=== PATIENT | male | born 1950 | race Caucasian/White ===

== ENCOUNTER 2025-03-13 14:35 | Inpatient (IN) | payer MEDICARE, SELFPAY ==
[2025-03-13] VITALS (9 sets, daily range): BP systolic 120–162; BP diastolic 60–78; PULSE 48–56; RESP 16–20; TEMP 36.4–36.6; O2SAT 99–100; BMI 22.9; BMI 22.6
--- NOTE | 2025-03-13 14:53 | CT_ITS ---
PROCEDURE: SPINE CERVICAL WITHOUT CONTRAS 03/13/2025 REASON FOR EXAM: TRAUMA TECHNIQUE: Cervical spine CT without contrast. Coronal and Sagittal reconstruction series were provided. One or more dose reduction techniques were used (e.g., Automated exposure control, adjustment of the mA and/or kV according to patient size, use of iterative reconstruction technique. RADIATION DOSE SUMMARY: CTDlvol: 26 mGy DLP: 600 mGycm COMPARISON: None. FINDINGS: Alignment: No traumatic listhesis. Grade 1 anterolisthesis of C4 onto C5. Vertebrae: No acute osseous fracture. Mild multilevel vertebral body height loss. Multilevel degenerative disc disease, greatest and of severe degree at C6-C7. Posterior disc osteophyte complexes and uncovertebral facet hypertrophy results in mild multilevel central and moderate multilevel neural foraminal stenosis. Soft Tissues: No prevertebral or subcutaneous hematoma. Calcific plaque of the bilateral cervical carotid arteries. See separately dictated same day CT chest for discussion of thoracic findings. CT/Spine Cervical without Contras IMPRESSION: NO ACUTE CERVICAL FRACTURE. DEGENERATIVE CHANGES. Reading Location: [id number]
--- NOTE | 2025-03-13 14:53 | EKG12_ITS ---
Test Reason : FALL Blood Pressure : */* mmHG Vent. Rate : 53 BPM Atrial Rate : 53 BPM P-R Int : 156 ms QRS Dur : 84 ms QT Int : 458 ms P-R-T Axes : 74 67 83 degrees QTcB Int : 429 ms Sinus bradycardia with sinus arrhythmia Otherwise normal ECG Confirmed by Silviano Bowling ([id number]), assignment editor NIURKA MONTALVO ([id number]) on 03/15/2025 9:20:17 AM Referred By: Ronald Piper Confirmed By: Silviano Bowling
--- NOTE | 2025-03-13 14:53 | CT_ITS ---
PROCEDURE: CT CHEST, ABD, PEL W/CONTRAST 03/13/2025 REASON FOR EXAM: FALL, ABD PAIN TECHNIQUE: Chest, abdomen and pelvis CT with intravenous contrast. Coronal and Sagittal reconstruction series were provided. One or more dose reduction techniques were used (e.g., Automated exposure control, adjustment of the mA and/or kV according to patient size, use of iterative reconstruction technique. PATIENT PREPARATION: Per protocol ORAL CONTRAST TYPE: None. CONTRAST: Isovue 370 VOLUME: 100m RADIATION DOSE SUMMARY: CTDlvol: 50 mGy DLP: 1700 mGycm COMPARISON: None. FINDINGS: CT CHEST: Hardware: None. Lymph nodes: No axillary, mediastinal or hilar lymphadenopathy. Heart and Vasculature: The heart is normal in size without pericardial effusion. Severe coronary artery calcifications/prior stenting. Moderate calcific plaque of the thoracic aorta. The great vessels are normal in caliber. Lungs and Airways: Visualization is limited by motion artifact. Emphysema with bibasilar atelectasis/scarring. Left upper lobe pulmonary nodule, measuring approximately 1.5 x 1.0 cm (series 8, image 39). Thickening of the right apical, not well visualized due to motion artifact. No pneumothorax or pleural effusion. Bones: Thoracic spondylosis. CT ABDOMEN/PELVIS: Liver: The liver is normal in size without focal hepatic mass. The major portal veins are patent. No biliary ductal dilation. Gallbladder: No radiopaque stones within the gallbladder. Spleen: Unremarkable. Pancreas: Unremarkable. Adrenals: Mild hyperplasia of the left adrenal gland without focal lesion. Unremarkable right adrenal gland. Kidneys: Bilateral renal cysts and additional hypodensities. Left renal calcifications, likely vascular. No hydronephrosis. Bladder: Minimally distended. Reproductive Organs: Dystrophic calcifications within the prostate. Bowel: The bowel loops are normal in caliber. No ascites or pneumoperitoneum. Normal appendix. Lymph nodes: No suspicious lymphadenopathy. Vasculature: Severe mixed plaque of the aortoiliac vessels. Bones: Lumbar spondylosis with grade 1 anterolisthesis of L4 onto L5, and L5 onto S1. CT/CT Chest, Abd, Pel w/Contrast IMPRESSION: CT chest: 1. Motion limited exam. No acute thoracic finding. 2. Left upper lobe pulmonary nodule, poorly evaluated due to motion artifact. Follow-up CT chest in 3 months is recommended to evaluate for stability/resolution. 3. Emphysema. CT abdomen/pelvis: No acute abdominopelvic finding. Reading Location: [id number]
--- NOTE | 2025-03-13 14:53 | CT_ITS ---
EXAM: BRAIN/HEAD WITHOUT CONTRAST CLINICAL HISTORY: 75 y/o M with TRAUMA. COMPARISON: None. TECHNIQUE: Routine CT imaging of the head without IV contrast. Additional multiplanar reformats were obtained. Dose reduction techniques were used including intermediate exposure control (AEC),iterative reconstruction technique, and/or mA and/or KV dose adjustments based on patient's size. FINDINGS: The ventricles, sulci and cisterns are mildly prominent, suggestive of brain parenchymal volume loss. There is no evidence of intracranial hemorrhage. There is no midline shift, mass effect, or extra-axial collection. Moderate patchy supratentorial white matter hypodensities. Small, chronic appearing infarct within the right frontoparietal watershed area. Small lacunar type infarct within the left basal ganglia. The hand-white matter interfaces are otherwise maintained. Prior ocular lens replacements. The visualized paranasal sinuses and mastoids are unremarkable. No acute calvarial fracture or scalp hematoma. CT/Brain/Head without Contrast IMPRESSION: 1. No acute intracranial finding. 2. Findings of chronic microvascular ischemic changes and age-related changes. Reading Location: [id number]
[2025-03-13] MEDS: 0.9% Normal Saline (1000mL) 1,000 ML 999 ML IV (14:57)
[2025-03-13 15:06] LABS: Absolute Lymphocyte Count 1.43 X10^3/uL (0.83-4.51); Absolute Neutrophil Count 6.5 X10^3/uL (2.0-7.7); Basophil# 0.06 X10^3/uL; Basophil% 0.7 % (0-1); Eosinophil# 0.02 X10^3/uL; Eosinophils% 0.2 % (0-5); Hematocrit 38.8 % (40-54); Hemoglobin 13.4 g/dL (13.0-16.5); Lymphocyte # 1.43 X10^3/ul (0.83-4.51); Lymphocyte % 16.5 % (19-41); Mean Corp Hgb Conc 34.5 g/dL (32-36); Mean Corpuscular Hgb 31.2 pg (27.0-32.0); Mean Corpuscular Volume 90.2 fL (80-94); Mean Platelet Vol. 11.4 fl (6.2-12.0); Monocyte# 0.58 X10^3/uL; Monocyte% 6.7 % (0-10); NRBC Flagged by Analyzer 0 % (0-5); Neutrophil # 6.54 X10^3/uL (2.7-7.7); Neutrophil % 75.6 % (47-70); Platelet Count 187 K/mm3 (150-450); RBC Distribution Width CV 13.7 % (11.6-14.6); RBC Distribution Width SD 45.6 fl (35.1-43.9); White Blood Count 8.7 K/mm3 (4.4-11.0)
[2025-03-13 15:17] LABS: International Normalized Ratio 1.1; Prothrombin Time (Protime)PT. 14.1 SECONDS (11.7-14.9)
[2025-03-13 15:18] LABS: Partial Thromboplast Time 26.1 Seconds (24.1-36.2)
--- NOTE | 2025-03-13 15:25 | EX.ED.DYSGE1 ---
HPI History of Present Illness Chief Complaint: Fall Narrative Narrative: Patient is a 75-year-old male with a past medical history of CAD, hypercholesteremia, hypertension who presents to the emergency department the chief complaint of multiple falls. Patient apparently had a positive loss consciousness and he after he woke up was able to crawl and call EMS. According to EMS they have been called out to his place multiple times and states that they have taken him to other facilities to be evaluated as well. Patient denies any blood thinning medications. Patient states he does feel lightheaded and overall not well. He states he does feel short of breath. Patient states that he does smoke. [facility] Medical History (Updated 03/13/25 @ 18:[address] Ronald Piper, DO) Depression Restless leg syndrome Essential hypertension Memory loss Myocardial infarction Home Medications ?Medication ?Instructions ?Recorded ?Last Taken ?Type atorvastatin 40 mg tablet (Lipitor) 40 mg PO DAILY 03/13/25 Unknown History chlorthalidone 25 mg tablet 25 mg PO DAILY 03/13/25 Unknown History clopidogrel 75 mg tablet 75 mg PO DAILY 03/13/25 Unknown History fluoxetine 10 mg capsule 10 mg PO DAILY 03/13/25 Unknown History lisinopril 20 mg tablet 20 mg PO DAILY 03/13/25 Unknown History ropinirole 0.25 mg tablet 0.25 mg PO QHS 03/13/25 Unknown History Allergy/AdvReac Type Severity Reaction Status Date / Time No Known Allergies Allergy Verified 03/13/25 14:39 Surgical History (Updated 03/13/25 @ 16:26 by Cristina Alonzo) H/O heart artery stent Social History Smoking Status: Current every day smoker tobacco type: cigarettes ROS ROS ED ROS Narrative Constitutional: Denies fevers, chills, headaches Eyes: Denies change in vision double vision blurry vision Cardiovascular: Denies chest pain or palpitations Respiratory: Complains of cough and shortness of breath as noted above Abdomen: Denies abdominal pain nausea vomit diarrhea : Denies painful urination, hematuria Neurological: Complains of multiple falls noted above denies numbness or tingling Musculoskeletal: Denies back pain Skin: Denies any rashes or lesions EXAM Physical Exam Narrative Exam Narrative: General: Patient is lying in bed rest comfortably not appear to be acute distress Head: Atraumatic, normocephalic Eyes: PERRL bilaterally, EOMI bilaterally, no conjunctival injection noted Neck: Soft, supple, trachea midline Cardiovascular: Patient bradycardic with a regular rhythm Respiratory: Diminished breath sounds bilaterally no wheezing noted Abdomen: Soft, nondistended, diffuse tenderness to palpation no rebound or guarding on exam Extremities: Radial pulses +2/4 in the bilateral extremities, +4/5 strength noted in the bilateral upper and lower extremities Neurological: Patient following commands knew that he was at the hospital he knew that it was spring was confused on the year Skin: Warm, dry, intact no rashes or lesions noted Const Vital Signs: 03/13/25 14:35 03/13/25 14:36 03/13/25 14:40 Temperature 97.6 F L Temperature Source Oral Pulse Rate 56 L 55 L Respiratory Rate 17 17 Respiratory Effort Normal Short of Breath Respiratory Depth Normal Respiratory Pattern Normal Blood Pressure 124/64 H 124/64 H Blood Pressure Mean 84 84 Pulse Ox 99 100 Oxygen Delivery Method Room Air Room Air Room Air 03/13/25 15:39 03/13/25 16:52 03/13/25 18:00 Temperature 97.6 F L Temperature Source Oral Pulse Rate 56 L 55 L 49 L Respiratory Rate 20 H 20 H 17 Respiratory Effort Respiratory Depth Respiratory Pattern Blood Pressure 136/60 H 139/77 H 120/78 Blood Pressure Mean 85 97 92 Pulse Ox 100 100 100 Oxygen Delivery Method Room Air Room Air Room Air MDM MDM MDM Narrative Medical decision making narrative: Patient is a 75-year-old male who presents to the emergency department chief complaint of multiple falls with positive loss conscious. On the differential diagnose includes but not limited to intracranial hemorrhage, cervical spine fracture, electrolyte abnormality, pneumonia, pneumothorax. Once workup is obtained reviewed he will be reevaluated. Patient CBC reviewed and showed no evidence leukocytosis white blood count normal at 8.7, he was 13.4, platelet count 187. Patient's INR normal at 1.1, PT of 14.1. Patient's arterial blood gas showed a pH 7.53 with a pCO2 of 20.5. Patient noted be alkalotic. Patient sodium normal 137, potassium of 4.3,, dioxide low at 18.5, anion gap of 20, creatinine was elevated at 3.98. Patient's AST and ALT were 36 and 13 respectively, total CK was noted to be 225. Patient's troponin was elevated 56 with a delta troponin of 46 this is likely secondary to his DREW. Patient's EKG showed sinus bradycardia. Patient's proBNP normal at 140, TSH normal at 3.87, free T4 and T3 were 1.80 and 2.2 respectively. Patient urinalysis reviewed and showed 100 leukocyte esterase 5-10 white cells with 3+ bacteria he was given a gram Rocephin and this will be sent for urine culture. Patient's drug screen negative. Patient's CT head and brain without contrast was reviewed which showed no acute findings he has findings of chronic microvascular ischemic changes and age-related changes. Patient CT cervical spine showed no acute fracture or listhesis. Patient CT chest abdomen pelvis reviewed and showed motion limited no acute thoracic findings left upper lobe pulmonary nodule which they are recommending follow-up in 3 months secondary to motion artifact emphysema noted. No acute findings in the abdomen or pelvis. At this point time will discuss case with hospitalist for admission Spoke with hospitalist Dr. Marino who accepts patient for admission. Patient notified as well as for member they are agreeable this plan. Did discuss case with on-call [employer] executive director Dr. Ann who reviewed the EKG and agrees that this is sinus bradycardia. Lab Data Labs: Laboratory Results - last 24 hr 03/13/25 03/13/25 03/13/25 14:47 15:55 16:00 WBC 8.7 RBC 4.30 L Hgb 13.4 Hct 38.8 L MCV 90.2 MCH 31.2 MCHC 34.5 RDW Std Deviation 45.6 H RDW Coeff of Cheryl 13.7 Plt Count 187 MPV 11.4 Immature Gran % (Auto) 0.300 Neut % (Auto) 75.6 H Lymph % (Auto) 16.5 L Barron % (Auto) 6.7 Eos % (Auto) 0.2 Baso % (Auto) 0.7 Absolute Neuts (auto) 6.5 Absolute Lymphs (auto) 1.43 Nucleated RBC % 0 PT 14.1 INR 1.1 APTT 26.1 Sodium 137 Potassium 4.3 Chloride 99 Carbon Dioxide 18.5 L Anion Gap 20 H BUN 73 H Creatinine 3.98 H Estim Creat Clear Calc 16.01 L Est GFR (MDRD) Non-Af 15 L BUN/Creatinine Ratio 18.2 Glucose 91 Calcium 10.0 Total Bilirubin 0.99 Direct Bilirubin 0.46 H AST 36 ALT 13 Alkaline Phosphatase 105 Total Creatine Kinase 225 H Troponin T High Sens 56 H* Troponin T Hi Sens 2 Hr NT pro BNP II 140 Total Protein 8.1 Albumin 4.5 Globulin 3.7 TSH 3.870 Free T4 1.80 H Free T3 pg/dL 2.2 Urine Color Yellow Urine Clarity Sl. Cloudy Urine pH 6.0 Ur Specific Colman 1.015 Urine Protein 30 H Urine Glucose (UA) Normal Urine Ketones 15 H Urine Occult Blood Negative Urine Nitrite Negative Urine Bilirubin 1 H Urine Urobilinogen Normal Ur Leukocyte Esterase 100 H Urine RBC 0 SEEN Urine WBC 5-10 SEEN Ur Squamous Epith Cells 0-5 SEEN Urine Bacteria 3+ Hyaline Casts 5-10 SEEN Urine Mucus 0 SEEN Urine Opiates Screen NEGATIVE U Buprenorphine Qual NEGATIVE Ur Oxycodone Screen NEGATIVE Urine Methadone Screen NEGATIVE Urine Fentanyl Screen NEGATIVE Ur Barbiturates Screen NEGATIVE Ur Phencyclidine Scrn NEGATIVE Ur Amphetamines Screen NEGATIVE U Benzodiazepines Scrn NEGATIVE Urine Cocaine Screen NEGATIVE U Cannabinoids Screen NEGATIVE 03/13/25 16:57 WBC RBC Hgb Hct MCV MCH MCHC RDW Std Deviation RDW Coeff of Cheryl Plt Count MPV Immature Gran % (Auto) Neut % (Auto) Lymph % (Auto) Barron % (Auto) Eos % (Auto) Baso % (Auto) Absolute Neuts (auto) Absolute Lymphs (auto) Nucleated RBC % PT INR APTT Sodium Potassium Chloride Carbon Dioxide Anion Gap BUN Creatinine Estim Creat Clear Calc Est GFR (MDRD) Non-Af BUN/Creatinine Ratio Glucose Calcium Total Bilirubin Direct Bilirubin AST ALT Alkaline Phosphatase Total Creatine Kinase Troponin T High Sens Troponin T Hi Sens 2 Hr 46 H NT pro BNP II Total Protein Albumin Globulin TSH Free T4 Free T3 pg/dL Urine Color Urine Clarity Urine pH Ur Specific Colman Urine Protein Urine Glucose (UA) Urine Ketones Urine Occult Blood Urine Nitrite Urine Bilirubin Urine Urobilinogen Ur Leukocyte Esterase Urine RBC Urine WBC Ur Squamous Epith Cells Urine Bacteria Hyaline Casts Urine Mucus Urine Opiates Screen U Buprenorphine Qual Ur Oxycodone Screen Urine Methadone Screen Urine Fentanyl Screen Ur Barbiturates Screen Ur Phencyclidine Scrn Ur Amphetamines Screen U Benzodiazepines Scrn Urine Cocaine Screen U Cannabinoids Screen ABG Data ABG results: ABG 03/13/25 15:47 Specimen Type ART Sample Site L Radial pH 7.53 H Bicarbonate Actual 17.1 L Total CO2 18 Base Excess -6 L O2 Saturation 99 O2 % 21.0 ABG pCO2 20.5 L ABG pO2 111 H Mike Test Positive O2 Delivery Device Room Air Vent Mode Not entered Radiography Diagnostic Testing: Clinical Impression(s) from Imaging Studies Brain CT 03/13/25 14:53 IMPRESSION: 1. No acute intracranial finding. 2. Findings of chronic microvascular ischemic changes and age-related changes. Reading Location: [facility] Cervical Spine CT 03/13/25 14:53 IMPRESSION: NO ACUTE CERVICAL FRACTURE. DEGENERATIVE CHANGES. Reading Location: [facility] Chest/Abdomen/Pelvis CT 03/13/25 14:53 IMPRESSION: CT chest: 1. Motion limited exam. No acute thoracic finding. 2. Left upper lobe pulmonary nodule, poorly evaluated due to motion artifact. Follow-up CT chest in 3 months is recommended to evaluate for stability/resolution. 3. Emphysema. CT abdomen/pelvis: No acute abdominopelvic finding. Reading Location: [facility] Discharge Plan Triage Chief Complaint: Fall ED Provider: Ronald Piper Dx/Rx/DC Orders Clinical Impression: Bradycardia, sinus, Generalized weakness, Elevated creatine kinase, Myocardial infarction type 2 Prescriptions: No Action clopidogrel 75 mg tablet 75 mg PO DAILY ropinirole 0.25 mg tablet 0.25 mg PO QHS fluoxetine 10 mg capsule 10 mg PO DAILY atorvastatin [Lipitor] 40 mg tablet 40 mg PO DAILY lisinopril 20 mg tablet 20 mg PO DAILY chlorthalidone 25 mg tablet 25 mg PO DAILY Primary Care Provider: Nikhil Spear Referrals: Nikhil Spear MD [Primary Care Provider] - Print Language: Estonian Disposition Disposition: [facility]
[2025-03-13 15:43] LABS: AST(SGOT) 36 U/L (<=37); Alanine Aminotransfer ALT/SGPT 13 U/L (<=46); Albumin, Serum 4.5 g/dL (3.4-4.8); Alkaline Phosphatase 105 U/L (40-129); Anion Gap 20 (5-15); BUN 73 mg/dL (4-19); BUN/Creat Ratio 18.2 RATIO (10-20); Bilirubin, Direct 0.46 mg/dL (0.00-0.30); Carbon Dioxide 18.5 mmol/L (21.0-32.0); Chloride 99 mmol/L (98-108); Creatinine, Serum 3.98 mg/dL (0.70-1.20); EST Glomerular Filtration Rate 15 (>60); Estimated Creatinine Clearance 16.01 ml/min (50-250); Globulin 3.7 g/dL (2.2-4.2); Glucose 91 mg/dL (70-99); Potassium 4.3 mmol/L (3.3-5.1); Protein, Total 8.1 g/dL (5.9-8.4); Sodium Level 137 mmol/L (133-145); Total Bilirubin 0.99 mg/dL (0.00-1.30)
[2025-03-13 15:51] LABS: Allen Test Positive; Base Excess -6 mmol/L (-2 to +2); Bicarbonate 17.1 mmol/L (22-26); Blood Gas Specimen Type ART; Mode Not entered; O2 Delivery Device Room Air; PO2 111 mmHG (75-100); SITE L Radial; SO2 99 % (95-99); Total Carbon Dioxide 18 mmol/L; pCO2 20.5 mmHg (35-45); pH 7.53 (7.35-7.45)
[2025-03-13 15:59] LABS: Mucous, Urine 0 SEEN /hpf (<or=2+); Red Blood Cells-Urine 0 SEEN /hpf (0-5)
[2025-03-13 16:01] LABS: Color, Urine Yellow (Yellow); Glucose, Dipstick Normal (Normal); Ketone-Dipstick 15 mg/dl (Negative); Leukocyte Esterase-Dipstick 100 /ul (Negative); Nitrite-Dipstick Negative (Negative); Occult Blood-Urine Negative /ul (Negative); Protein-Dipstick 30 mg/dl (Negative); Specific Gravity, Urine 1.015 (1.002-1.030); Urine Bilirubin Dipstick 1 mg/dL (Negative); Urine Clarity Sl. Cloudy (Clear); Urine Urobilinogen Normal (Normal)
[2025-03-13 16:08] LABS: Bacteria 3+ /hpf (None Seen); Hyaline Cast 5-10 SEEN /lpf (0-5); Squamous Epithelial Cells - UA 0-5 SEEN /hpf (0-5); White Blood Cells 5-10 SEEN /hpf (0-5)
[2025-03-13 16:15] LABS: CPK Total, Creatine Kinase 225 U/L (24-195)
[2025-03-13 16:19] LABS: Amphetamine Urine NEGATIVE (<1000 ng/mL); Barbiturate Urine NEGATIVE (< 200 ng/mL); Benzodiazepine Urine NEGATIVE (< 200 ng/mL); Buprenorphine Urine NEGATIVE (< 200 ng/mL); Cocaine Urine NEGATIVE (< 300 ng/mL); Fentanyl, Urine NEGATIVE; Methadone Urine NEGATIVE (< 300 ng/mL); Opiates Urine NEGATIVE (< 300 ng/mL); Oxycodone, Urine NEGATIVE (< 100 ng/mL); PCP Urine NEGATIVE (< 25 ng/mL); THC Urine NEGATIVE (< 50 ng/mL)
--- NOTE | 2025-03-13 16:20 | CM.ED ---
Social Work: Date of referral: 03/13/25 Reason for referral: Request for Advanced Care Directives, and resources. Referred by: Social Work identification Patient provided consent to social work visit. Initially present was patient's son, Fermin and later in the visit, patient's son Prashant arrived back to patient's room. Patient is hard of hearing. Patient presented with apparent memory loss as patient was having a difficult time remembering various details of information that was being asked of him by perinatal social worker and also presented with some confusion. Patient's sons stated patient does get things mixed up and has been getting confused with some of his medication. Fermin stated they have been trying to keep an eye on patient's medication and at times have noticed (among other things) that patient would take 2 of his pills for high blood pressure instead of one. utilities ground worker provided education about various ways patient's medications might be more successfully managed such as the use of a medication dispenser with an alarm. utilities ground worker provided verbal and written information on fall prevention education at which point, patient stated he normally gets dizzy and lightheaded first which typically results in falls. Patient stated he has lots of bumps on the back of his head from falling. Well Drill Operator [employer] encouraged patient to make sure he is holding onto something after standing up and to wait for a minute or a few minutes before attempting to ambulate just to make sure he's steady. Well Dr[employer] also provided written resources for an Emergency Response Device with a fall detection sensor. Patient's sons reported patient has a sister who lives in [place] that is agreeable to patient moving in with her however, patient does not wish to do so at this time and has a desire to maintain his independence and live on his own. Patient has a neighbor who checks on patient daily. Mo other needs/concerns identified at this time. Renee Alexander, PUNCH OPERATOR, INTERNAL AUDITOR
[2025-03-13] MEDS: Ceftriaxone 1 GM/50 ML BAG IV (16:23)
[2025-03-13 16:45] LABS: Free T3 2.2 pg/mL (2.18-3.98)
[2025-03-13 17:15] LABS: Pro- Brain NATRIURETIC PEPTIDE 140 pg/mL (<=1800); Troponin T High Sensitivity 56 ng/L (<=22)
[2025-03-13 17:30] LABS: Troponin T High Sens 2 HR 46 ng/L (<=22)
--- NOTE | 2025-03-13 18:16 | PCM.HP.STD ---
HPI - General General Date of Admission: 03/13/25 Date of Service: 03/13/25 Chief Complaint: Falls/Weakness HPI Narrative LOTTIE WILDE, is a 75 M who presented to the emergency department [facility] on 03/13/2025 due to multiple falls. Patient evidently had a self-reported loss of consciousness today after he woke up on the ground he was able to call to the phone and called EMS. EMS reported they been out to his house multiple times and stated that they take him to other facilities to be evaluated as well without admission. Patient does state he feels lightheaded and not well overall. He complains of some shortness of breath intermittently but he does smoke still on a regular basis. He reports he said history of cardiac arrest. Son reports that he had stents placed about 2 to 3 years ago. At the time of my evaluation patient stated that he was feeling okay and asking when we thought he may be able to go home. I indicated to him we were not clear at this time as of yet. The son did pull me aside and stated that he has had some memory impairment as well and that his renal function is not normal at baseline however he is unclear what his baseline renal function is. He has seen a middle school science teacher it sounds like but we are unclear of the name of the middle school science teacher. Vital signs on presentation showed a temperature of 97.6, heart rate 56, blood pressure 124/64, respiratory rate 17 and pulse ox was 99% on room air. CBC was overtly unremarkable. Coags were normal. A blood gas was obtained and a pH of 7.53 with a pCO2 of 2025 and a pO2 of 111. Chemistry panel shows normal electrolytes except a serum bicarb is low at 18.5 with an anion gap of 20. BUN is 73 with a creatinine of 3.98. Again we are unclear what his baseline renal function is. Initial troponin was 56 with a delta of 46. BNP was within normal limits. CPK was 225. EKG is sinus rhythm without any ST-T wave changes concerning for acute ischemia. CT of the brain shows no acute findings but does show chronic microvascular ischemic changes and hand related changes. CT of the cervical spine shows degenerative changes but was otherwise unremarkable. CT of the chest abdomen pelvis shows emphysema and a left upper lobe pulmonary nodule with no acute intrathoracic findings. CT of the abdomen pelvis was unremarkable as well. [facility] Medical History (Updated 03/13/25 @ 19:[address] Kayli Marino DO) Hyperlipidemia Cardiac arrest CKD (chronic kidney disease) Depression Restless leg syndrome Essential hypertension Memory loss Myocardial infarction Home Medications ?Medication ?Instructions ?Recorded ?Last Taken ?Type atorvastatin 40 mg tablet (Lipitor) 40 mg PO DAILY 03/13/25 Unknown History chlorthalidone 25 mg tablet 25 mg PO DAILY 03/13/25 Unknown History clopidogrel 75 mg tablet 75 mg PO DAILY 03/13/25 Unknown History fluoxetine 10 mg capsule 10 mg PO DAILY 03/13/25 Unknown History lisinopril 20 mg tablet 20 mg PO DAILY 03/13/25 Unknown History ropinirole 0.25 mg tablet 0.25 mg PO QHS 03/13/25 Unknown History Allergy/AdvReac Type Severity Reaction Status Date / Time No Known Allergies Allergy Verified 03/13/25 14:39 Family History (Updated 03/13/25 @ 19:[address] Kayli Marino DO) Other Heart disease Hypertension Surgical History H/O heart artery stent Social History (Updated 03/13/25 @ 19:[address] Kayli Marino DO) household members: none housing: house current occupational status: retired Smoking Status: Current every day smoker tobacco type: cigarettes alcohol intake: never substance use type: does not use ROS Constitutional Constitutional: Denies anorexia, change in weight, chills, fatigue, fever(s), malaise, night sweats, weakness or other Eyes Eyes: Denies blurry vision, change in eye color, change in vision, discharge from eye(s), double vision, erythema, eye pain, loss of vision or other ENT HEENT: Denies abnormal hearing, dysphagia, ear pain, epistaxis, headache(s), hearing loss, nasal congestion, nasal discharge, post nasal drip, sinus pressure, sore throat or other Cardiovascular Cardiovascular: Reports syncope; Denies chest pain, claudication, dyspnea on exertion, edema, lightheadedness, orthopnea, palpitations, paroxysmal nocturnal dyspnea, rapid heart rate or other Respiratory/Chest Respiratory/Chest: Denies cough, dyspnea, excessive phlegm production, hemoptysis, productive cough, shortness of breath at rest, shortness of breath with exertion, wheezing or other Gastrointestinal Gastrointestinal: Denies abdominal pain, coffee ground emesis, constipation, diarrhea, dyspepsia, hematemesis, hematochezia, loose stools, melena, nausea, vomiting or other Genitourinary Genitourinary: Denies burning urination, difficulty urinating, dysuria, hematuria, nocturia, urinary frequency, urinary hesitancy, urinary incontinence, urinary urgency or other Musculoskeletal Musculoskeletal: Reports other Details: Generalized weakness Neurologic Neurologic: Denies abnormal gait, abnormal speech, confusion, disequilibrium, dizziness, focal weakness, headache(s), numbness, paresthesias, seizure-like activity, seizures, syncope, tingling, tremor(s) or other Psychiatric Psychiatric: Denies anxiety, depression, homicidal ideation, suicidal ideation or other Endocrine Endocrinology: Denies change in body appearance, cold intolerance, excessive sweating, heat intolerance, polydipsia, polyuria or other Hematologic/Lymphatic Hematologic/Lymphatic: Reports easy bruising; Denies anemia, easy bleeding, lymphadenopathy or other Allergic/Immunologic Allergic/Immunologic: Denies rhinitis, hives, eczemia, asthma or other Vital Signs Vital Signs Vital Signs: 03/13/25 14:35 03/13/25 14:36 03/13/25 14:40 Temperature 97.6 F L Temperature Source Oral Pulse Rate 56 L 55 L Respiratory Rate 17 17 Respiratory Effort Normal Short of Breath Respiratory Depth Normal Respiratory Pattern Normal Blood Pressure 124/64 H 124/64 H Blood Pressure Mean 84 84 Pulse Ox 99 100 Oxygen Delivery Method Room Air Room Air Room Air 03/13/25 15:39 03/13/25 16:52 03/13/25 18:00 Temperature 97.6 F L Temperature Source Oral Pulse Rate 56 L 55 L 49 L Respiratory Rate 20 H 20 H 17 Respiratory Effort Respiratory Depth Respiratory Pattern Blood Pressure 136/60 H 139/77 H 120/78 Blood Pressure Mean 85 97 92 Pulse Ox 100 100 100 Oxygen Delivery Method Room Air Room Air Room Air Weight Weight: 70.6 kg Body Mass Index (BMI) 22.9 Physical Exam Const alert, oriented x3, no apparent distress and average body habitus; Negative for healthy appearing Constitutional Narrative: Elderly, white male, appears older than stated age, somewhat forgetful but is alert and oriented x 3, appears comfortable and nontoxic General Appearance: cooperative HEENT normocephalic and head/scalp atraumatic HEENT Narrative: Dentition is poor, moderate hearing loss, mucous membranes are moist Eyes conjunctivae normal Eyes Narrative: No scleral icterus Neck supple Neck Narrative: Trachea midline Resp normal respiratory effort, no retractions, no use of accessory muscles and clear to auscultation bilaterally Resp Narrative: Diffusely diminished but clear Auscultation: Negative for rales, rhonchi or wheezes Cardio regular rhythm, S1 normal heart sound, S2 normal heart sound, no murmurs, no rub, no gallops and no clicks Cardio Narrative: Bradycardic GI normal to inspection, nondistended, normoactive bowel sounds, soft to palpation and non-tender Extremity no clubbing, cyanosis or edema Extremity Narrative: 2+ pedal and radial pulses Skin skin turgor normal, no jaundice, no petechiae and no mottling Skin Narrative: Scattered areas of ecchymosis Neuro oriented x3, moves all extremities and no focal motor deficits Neuro Narrative: Seems to have some memory impairment but is alert and oriented x 3 Psych affect normal Psych Narrative: Pleasant, interacts appropriately Results Lab / Micro Data 03/13/25 14:47 03/13/25 14:47 Labs: Laboratory Results - last 24 hr 03/13/25 14:47: WBC 8.7, RBC 4.30 L, Hgb 13.4, Hct 38.8 L, MCV 90.2, MCH 31.2, MCHC 34.5, RDW Std Deviation 45.6 H, RDW Coeff of Cheryl 13.7, Plt Count 187, MPV 11.4, Immature Gran % (Auto) 0.300, Neut % (Auto) 75.6 H, Lymph % (Auto) 16.5 L, [place] % (Auto) 6.7, Eos % (Auto) 0.2, Baso % (Auto) 0.7, Absolute Neuts (auto) 6.5, Absolute Lymphs (auto) 1.43, Nucleated RBC % 0, PT 14.1, INR 1.1, APTT 26.1, Sodium 137, Potassium 4.3, Chloride 99, Carbon Dioxide 18.5 L, Anion Gap 20 H, BUN 73 H, Creatinine 3.98 H, Estim Creat Clear Calc 16.01 L, Est GFR (MDRD) Non-Af 15 L, BUN/Creatinine Ratio 18.2, Glucose 91, Calcium 10.0, Total Bilirubin 0.99, Direct Bilirubin 0.46 H, AST 36, ALT 13, Alkaline Phosphatase 105, Total Creatine Kinase 225 H, Total Protein 8.1, Albumin 4.5, Globulin 3.7 03/13/25 15:55: Urine Color Yellow, Urine Clarity Sl. Cloudy, Urine pH 6.0, Ur Specific [place] 1.015, Urine Protein 30 H, Urine Glucose (UA) Normal, Urine Ketones 15 H, Urine Occult Blood Negative, Urine Nitrite Negative, Urine Bilirubin 1 H, Urine Urobilinogen Normal, Ur Leukocyte Esterase 100 H, Urine RBC 0 SEEN, Urine WBC 5-10 SEEN, Ur Squamous Epith Cells 0-5 SEEN, Urine Bacteria 3+, Hyaline Casts 5-10 SEEN, Urine Mucus 0 SEEN, Urine Opiates Screen NEGATIVE, U Buprenorphine Qual NEGATIVE, Ur Oxycodone Screen NEGATIVE, Urine Methadone Screen NEGATIVE, Urine Fentanyl Screen NEGATIVE, Ur Barbiturates Screen NEGATIVE, Ur Phencyclidine Scrn NEGATIVE, Ur Amphetamines Screen NEGATIVE, U Benzodiazepines Scrn NEGATIVE, Urine Cocaine Screen NEGATIVE, U Cannabinoids Screen NEGATIVE 03/13/25 16:00: Troponin T High Sens 56 H*, NT pro BNP II 140, TSH 3.870, Free T4 1.80 H, Free T3 pg/dL 2.2 03/13/25 16:57: Troponin T Hi Sens 2 Hr 46 H ABG Data ABG results: ABG 03/13/25 15:47 Specimen Type ART Sample Site L Radial pH 7.53 H Bicarbonate Actual 17.1 L Total CO2 18 Base Excess -6 L O2 Saturation 99 O2 % 21.0 ABG pCO2 20.5 L ABG pO2 111 H Mike Test Positive O2 Delivery Device Room Air Vent Mode Not entered Imaging Radiology Impression Brain CT 03/13/25 14:53 IMPRESSION: 1. No acute intracranial finding. 2. Findings of chronic microvascular ischemic changes and age-related changes. Reading Location: [facility] Cervical Spine CT 03/13/25 14:53 IMPRESSION: NO ACUTE CERVICAL FRACTURE. DEGENERATIVE CHANGES. Reading Location: [facility] Chest/Abdomen/Pelvis CT 03/13/25 14:53 IMPRESSION: CT chest: 1. Motion limited exam. No acute thoracic finding. 2. Left upper lobe pulmonary nodule, poorly evaluated due to motion artifact. Follow-up CT chest in 3 months is recommended to evaluate for stability/resolution. 3. Emphysema. CT abdomen/pelvis: No acute abdominopelvic finding. Reading Location: [facility] Assessment & Plan Assessment/Plan (1) Falls: (2) Generalized weakness: (3) Elevated creatine kinase: (4) Elevated troponin: (5) Elevated serum creatinine: (6) Abnormal urinalysis: (7) Bradycardia, sinus: (8) Pulmonary nodule: (9) Cognitive impairment: (10) Respiratory alkalosis: PLAN: Plan Fall/generalized weakness/possible syncope - Patient seemingly becoming more debilitated at home -There is report that he had loss of consciousness however this was not witnessed so unclear as patient is not necessarily reliable historian -Will monitor on telemetry and check an echocardiogram as well as cycle cardiac enzymes -EKG is sinus bradycardia with normal intervals - Has had history of cardiopulmonary arrest and I do wonder if this is playing into his memory issues - TSH is within normal limits - Check vitamin D and B12 level - UA is suggestive of infection so we will treat this and see if it helps his functional status - consult PT/OT - Consult case management/social media executive to assist with discharge planning as I suspect he will need higher level of care or at least home health at the time of discharge Abnormal UA - Culture is pending - Ceftriaxone 1 g daily Elevated serum creatinine - Baseline is unknown - Per son he does follow with a middle school science teacher but they are unaware of what his baseline renal function is at this time - Will stop chlorthalidone and lisinopril - IV fluids x 2 L at 100 cc/h and will see where he levels out with regards to his renal function - Check urine sodium, urine creatinine and urine urea since he is on chlorthalidone - Check retroperitoneal ultrasound - Avoid nephrotoxins as able Pulmonary nodule - Small nodule found on CT of the chest - Outpatient follow-up for repeat CT per Fleischner guidelines - Patient has history of tobacco abuse and is currently a smoker Elevated CK - Mild - Will repeat in a.m. to ensure clearance and note up trends with DREW Elevated troponin - Check echocardiogram - Cycle cardiac enzymes per protocol - Patient without chest pain and EKG shows no findings suggestive of acute ischemia - Highly suspect demand ischemia or decreased clearance with renal function Sinus bradycardia - Patient is on no rate controlling medication - Will monitor on telemetry - Check echocardiogram Respiratory alkalosis/metabolic acidosis with elevated anion gap - Anion gap metabolic acidosis is likely related to his renal dysfunction however he has over correcting but does not appear to be markedly tachypneic at this time and he is not hypoxic - Repeat lab in a.m. - May be related to hyperventilation during procedure Cognitive impairment - Patient with history of cardiopulmonary arrest with this likely played into this - Highly suspect this may be vascular - CT of the brain shows chronic microvascular ischemic changes and age-related changes CAD/essential hypertension/hyperlipidemia - Hold chlorthalidone and lisinopril due to renal function - As needed hydralazine available for now and will need to assess need for alternatives to his antihypertensive regimen - Continue home statin - Continue home Plavix - Per son last stents were placed 2 to 3 years ago at outside facility Restless leg syndrome - Continue home ropinirole Tobacco abuse - recommend cessation - Nicotine replacement therapy available DVT prophylaxis - Subcu heparin 3 times daily CODE STATUS -DNR CCA with no intubation per discussion with patient on admission. Son was at the bedside for conversation Charges/Coding Visit Charges Inpatient E&M: 71061 Init Hosp L3
--- NOTE | 2025-03-13 18:27 | ECHOD_ITS ---
Reason For Study Reason For Study: ARRHYTHMIA Procedure This was a 2D Doppler, Color Flow transthoracic echocardiogram. The study was technically difficult. Exam performed portable in patient room. Left Ventricle Normal size and thickness. The LV systolic function is normal. EF is 70 %. No evidence for diastolic dysfunction. Right Ventricle Normal right ventricle. Atria The left and right atria are normal. Mitral Valve Mild mitral annular calcification. Trivial mitral valve insufficiency. Tricuspid Valve Trivial tricuspid valve insufficiency. Unable to estimate RV systolic pressure due to insufficient tricuspid regurgitant envelope. Aortic Valve The aortic valve is not well visualized in the short axis view. There is no aortic stenosis. No aortic valve insufficiency. Pulmonic Valve The pulmonic valve is not well visualized. Great Vessels The aortic root is not well visualized. Pericardium/Pleural No pericardial effusion. MMode/2D Measurements & Calculations LVIDd: 4.2 cm IVSd: 0.85 cm LVOT diam: 2.0 cm LVIDs: 2.9 cm LVPWd: 0.82 cm LVOT area: 3.1 cm2 RVDd: 3.9 cm FS: 30.7 % LAV(MOD-bp): 29.1 ml LVAd ap4: 23.3 cm2 LVAd ap2: 22.6 cm2 LAV(MOD-bp) Indexed: 15.8 ml/m2 LVLd ap4: 7.3 cm LVLd ap2: 7.2 cm LAV(MOD-sp2): 39.4 ml EDV(MOD-sp4): 62.3 ml EDV(MOD-sp2): 58.7 ml LAV(MOD-sp4): 19.7 ml EDV(sp4-el): 63.3 ml EDV(sp2-el): 59.8 ml LVAs ap4: 10.2 cm2 LVAs ap2: 10.5 cm2 LVLs ap4: 5.6 cm LVLs ap2: 5.9 cm ESV(MOD-sp4): 16.1 ml ESV(MOD-sp2): 15.8 ml ESV(sp4-el): 15.8 ml ESV(sp2-el): 16.0 ml EF(MOD-sp4): 74.1 % EF(MOD-sp2): 73.1 % EF(sp4-el): 75.0 % SV(MOD-sp4): 46.2 ml SV(MOD-sp2): 42.9 ml SV(sp4-el): 47.5 ml SI(MOD-sp4): 25.1 ml/m2 SI(MOD-sp2): 23.3 ml/m2 Ao sinus diam: 3.5 cm LA A4 area: 9.9 cm2 LA dimension(2D): 4.1 cm TAPSE: 2.0 cm RA A4 area: 14.8 cm2 Time Measurements MV dec time: 0.25 sec Doppler Measurements & Calculations MV E max del: 97.3 cm/sec Lat Peak E' Del: 12.4 cm/sec Med Peak E' Del: 8.8 cm/sec MV A max del: 90.4 cm/sec E/E' lat: 7.9 E/E' med: 11.1 MV E/A: 1.1 MV dec slope: 393.8 cm/sec2 Ao V2 max: 108.2 cm/sec LV V1 max: 96.2 cm/sec Ao max P.7 mmHg LV V1 max P.7 mmHg Ao V2 mean: 70.2 cm/sec LV V1 mean P.9 mmHg Ao mean P.2 mmHg LV V1 mean: 62.8 cm/sec Ao V2 VTI: 24.2 cm LV V1 VTI: 25.4 cm AV (velocity ratio): 1.1 KAYLEEN(I,D): 3.3 cm2 KAYLEEN(V,D): 2.8 cm2 SV(LVOT): 80.0 ml PA V2 max: 91.3 cm/sec ECHO/Echo Complete Interpretation Summary The LV systolic function is normal. EF is 70 %. Mild mitral annular calcification. The study was technically difficult. Ordering Physician: Kayli Marino Referring Physician: Ronald Piper Performed By: Aleja Hummel RDCS
--- NOTE | 2025-03-13 18:27 | US_ITS ---
PROCEDURE: KIDNEY AND BLADDER 03/13/2025 REASON FOR EXAM: DREW TECHNIQUE: Bilateral renal ultrasound. COMPARISON: Same day CT abdomen pelvis. FINDINGS: Kidneys: Normal renal sizes, parenchymal thicknesses, and echotextures. No hydronephrosis, nephrolithiasis or large renal mass. The urinary bladder is mildly distended. There is visualization of the bilateral ureteral jets. RIGHT Kidney Size: 9.5 x 5.7 x 5.5 cm Volume: 154 mL Parenchymal Thickness: 1.4 (>14mm is normal) Cortical Thickness (if discernible): N/a (>6mm is normal) LEFT Kidney Size: 9.1 x 5.2 x 5.3 cm Volume: 130 mL Parenchymal Thickness: 1.0 (>14mm is normal) Cortical Thickness (if discernible): N/a (>6mm is normal) US/Kidney and Bladder IMPRESSION: NORMAL RENAL ULTRASOUND. Reading Location: [id number]
[2025-03-13] MEDS: 0.9% Normal Saline (1000mL) 1,000 ML 100 ML IV (20:48)
[2025-03-13] MEDS: hydrALAZINE 20 MG/ML Vial 10 MG IV (20:48)
[2025-03-13 21:19] LABS: Troponin T High Sens 4 HR 51 ng/L (<=22)
[2025-03-13 21:36] LABS: Vitamin B12 797 pg/mL (180-914)
[2025-03-13] MEDS: Atorvastatin Calcium 40 MG Tablet PO (23:24)
[2025-03-13] MEDS: Acetaminophen 500 MG Tablet 1000 MG PO (23:24)
[2025-03-13] MEDS: Heparin Injection (Vial) 5,000 UNIT/ML VIAL 5000 UNIT SC (23:24)
[2025-03-13] MEDS: Pramipexole Di-HCl 0.125 MG Tablet PO (23:24)
[2025-03-14] VITALS (9 sets, daily range): BP systolic 130–162; BP diastolic 51–65; PULSE 45–50; RESP 16–18; TEMP 36.4–36.6; O2SAT 95–100; BMI 23.2
--- NOTE | 2025-03-14 02:04 | PCM.HOSP.N ---
Hospitalist Note Patient with frequent loose stools. Will request cdiff and enteric. If negative will have loperamide available.
[2025-03-14 04:55] LABS: Absolute Lymphocyte Count 1.13 X10^3/uL (0.83-4.51); Absolute Neutrophil Count 6.9 X10^3/uL (2.0-7.7); Basophil# 0.06 X10^3/uL; Basophil% 0.7 % (0-1); Eosinophil# 0.02 X10^3/uL; Eosinophils% 0.2 % (0-5); Hematocrit 36.3 % (40-54); Hemoglobin 12.1 g/dL (13.0-16.5); Lymphocyte # 1.13 X10^3/ul (0.83-4.51); Mean Corp Hgb Conc 33.3 g/dL (32-36); Mean Corpuscular Volume 93.1 fL (80-94); Mean Platelet Vol. 11.4 fl (6.2-12.0); Monocyte# 0.56 X10^3/uL; Monocyte% 6.4 % (0-10); NRBC Flagged by Analyzer 0 % (0-5); Neutrophil % 79.5 % (47-70); Platelet Count 156 K/mm3 (150-450); RBC Distribution Width CV 13.9 % (11.6-14.6); RBC Distribution Width SD 47.4 fl (35.1-43.9); White Blood Count 8.7 K/mm3 (4.4-11.0)
[2025-03-14 05:19] LABS: CPK Total, Creatine Kinase 196 U/L (24-195); Magnesium 2.6 mg/dL (1.5-2.2)
[2025-03-14 05:22] LABS: ALB/GLOB Ratio 1.3 RATIO (0.9-2.4); AST(SGOT) 31 U/L (<=37); Alanine Aminotransfer ALT/SGPT 11 U/L (<=46); Albumin, Serum 3.9 g/dL (3.4-4.8); Alkaline Phosphatase 88 U/L (40-129); Anion Gap 13 (5-15); BUN 66 mg/dL (4-19); BUN/Creat Ratio 20.7 RATIO (10-20); Calcium,Total 8.8 mg/dL (7.6-11.0); Carbon Dioxide 20.7 mmol/L (21.0-32.0); Chloride 105 mmol/L (98-108); EST Glomerular Filtration Rate 19 (>60); Estimated Creatinine Clearance 19.61 ml/min (50-250); Globulin 3.1 g/dL (2.2-4.2); Glucose 76 mg/dL (70-99); Potassium 4.3 mmol/L (3.3-5.1); Sodium Level 138 mmol/L (133-145); Total Bilirubin 0.56 mg/dL (0.00-1.30)
[2025-03-14 05:42] LABS: Phosphorus 4.6 mg/dL (2.7-4.5)
[2025-03-14] MEDS: Acetaminophen 500 MG Tablet 1000 MG PO ×3 (06:21→21:05)
[2025-03-14] MEDS: Heparin Injection (Vial) 5,000 UNIT/ML VIAL 5000 UNIT SC ×3 (06:22→21:05)
[2025-03-14] MEDS: 0.9% Normal Saline (1000mL) 1,000 ML 100 ML IV (06:55)
[2025-03-14 08:48] LABS: Urea Nitrogen, Urine 493 mg/dL (NO RANGE EST.); Urine Sodium 62 mmol/L (Not Establ.)
--- NOTE | 2025-03-14 08:52 | PN.HOSP_ITS ---
Reason for Visit Reason for Visit: Diagnoses Alkalosis (03/13/25) Bradycardia, unspecified (03/13/25) Repeated falls (03/13/25) Other symptoms and signs involving cognitive functions and awareness (03/13/25) Weakness (03/13/25) Abnormal levels of other serum enzymes (03/13/25) Other specified abnormal findings of blood chemistry (03/13/25) Unspecified abnormal findings in urine (03/13/25) Solitary pulmonary nodule (03/13/25) Subjective Subjective chilled. asking to go home. Objective Data Objective Data Vital Signs: Vital Signs Temp Pulse Resp BP Pulse Ox O2 Del Method 36.6 C 50 L 18 130/60 H 100 Room Air 03/14/25 03:30 03/14/25 03:30 03/14/25 03:30 03/14/25 03:30 03/14/25 03:30 03/14/25 03:30 Oxygen Delivery Method Room Air Weight: 69.5 kg Body Mass Index (BMI) 22.6 Intake & Output: Intake and Output for Last 24 Hours 03/12/25 03/13/25 03/14/25 23:59 23:59 23:59 Intake Total 1050 / 1050 1240 / 1240 Balance 1050 / 1050 1240 / 1240 Lab / Micro Data 03/14/25 04:18 03/14/25 04:18 Labs: Laboratory Results - last 24 hr 03/13/25 14:47: WBC 8.7, RBC 4.30 L, Hgb 13.4, Hct 38.8 L, MCV 90.2, MCH 31.2, MCHC 34.5, RDW Std Deviation 45.6 H, RDW Coeff of Cheryl 13.7, Plt Count 187, MPV 11.4, Immature Gran % (Auto) 0.300, Neut % (Auto) 75.6 H, Lymph % (Auto) 16.5 L, Pershing % (Auto) 6.7, Eos % (Auto) 0.2, Baso % (Auto) 0.7, Absolute Neuts (auto) 6.5, Absolute Lymphs (auto) 1.43, Nucleated RBC % 0, PT 14.1, INR 1.1, APTT 26.1, Sodium 137, Potassium 4.3, Chloride 99, Carbon Dioxide 18.5 L, Anion Gap 20 H, BUN 73 H, Creatinine 3.98 H, Estim Creat Clear Calc 16.01 L, Est GFR (MDRD) Non-Af 15 L, BUN/Creatinine Ratio 18.2, Glucose 91, Calcium 10.0, Total Bilirubin 0.99, Direct Bilirubin 0.46 H, AST 36, ALT 13, Alkaline Phosphatase 105, Total Creatine Kinase 225 H, Total Protein 8.1, Albumin 4.5, Globulin 3.7 03/13/25 15:55: Urine Color Yellow, Urine Clarity Sl. Cloudy, Urine pH 6.0, Ur Specific [place] 1.015, Urine Protein 30 H, Urine Glucose (UA) Normal, Urine Ketones 15 H, Urine Occult Blood Negative, Urine Nitrite Negative, Urine Bilirubin 1 H, Urine Urobilinogen Normal, Ur Leukocyte Esterase 100 H, Urine RBC 0 SEEN, Urine WBC 5-10 SEEN, Ur Squamous Epith Cells 0-5 SEEN, Urine Bacteria 3+, Hyaline Casts 5-10 SEEN, Urine Mucus 0 SEEN, Ur Random Sodium 62, Urine Creatinine 222.00, Urine Urea Nitrogen 493, Urine Opiates Screen NEGATIVE, U Buprenorphine Qual NEGATIVE, Ur Oxycodone Screen NEGATIVE, Urine Methadone Screen NEGATIVE, Urine Fentanyl Screen NEGATIVE, Ur Barbiturates Screen NEGATIVE, Ur Phencyclidine Scrn NEGATIVE, Ur Amphetamines Screen NEGATIVE, U Benzodiazepines Scrn NEGATIVE, Urine Cocaine Screen NEGATIVE, U Cannabinoids Screen NEGATIVE 03/13/25 16:00: Troponin T High Sens 56 H*, NT pro BNP II 140, TSH 3.870, Free T4 1.80 H, Free T3 pg/dL 2.2 03/13/25 16:57: Troponin T Hi Sens 2 Hr 46 H 03/13/25 20:36: Troponin T Hi Sens 4Hr 51 H, Vitamin B12 797, Vitamin D 25- Hydroxy 13.0 L 03/14/25 04:18: WBC 8.7, RBC 3.90 L, Hgb 12.1 L, Hct 36.3 L, MCV 93.1, MCH 31.0, MCHC 33.3, RDW Std Deviation 47.4 H, RDW Coeff of Cheryl 13.9, Plt Count 156, MPV 11.4, Immature Gran % (Auto) 0.200, Neut % (Auto) 79.5 H, Lymph % (Auto) 13.0 L, Pershing % (Auto) 6.4, Eos % (Auto) 0.2, Baso % (Auto) 0.7, Absolute Neuts (auto) 6.9, Absolute Lymphs (auto) 1.13, Nucleated RBC % 0, Sodium 138, Potassium 4.3, Chloride 105, Carbon Dioxide 20.7 L, Anion Gap 13, BUN 66 H, Creatinine 3.20 H, Estim Creat Clear Calc 19.61 L, Est GFR (MDRD) Non-Af 19 L, BUN/Creatinine Ratio 20.7 H, Glucose 76, Calcium 8.8, Phosphorus 4.6 H, Magnesium 2.6 H, Total Bilirubin 0.56, AST 31, ALT 11, Alkaline Phosphatase 88, Total Creatine Kinase 196 H, Total Protein 7.0, Albumin 3.9, Globulin 3.1, Albumin/Globulin Ratio 1.3 ABG Data ABG results: ABG 03/13/25 15:47 Specimen Type ART Sample Site L Radial pH 7.53 H Bicarbonate Actual 17.1 L Total CO2 18 Base Excess -6 L O2 Saturation 99 O2 % 21.0 ABG pCO2 20.5 L ABG pO2 111 H Mike Test Positive O2 Delivery Device Room Air Vent Mode Not entered Radiography Diagnostic Testing: Radiology Impression Brain CT 03/13/25 14:53 IMPRESSION: 1. No acute intracranial finding. 2. Findings of chronic microvascular ischemic changes and age-related changes. Reading Location: [facility] Cervical Spine CT 03/13/25 14:53 IMPRESSION: NO ACUTE CERVICAL FRACTURE. DEGENERATIVE CHANGES. Reading Location: [facility] Chest/Abdomen/Pelvis CT 03/13/25 14:53 IMPRESSION: CT chest: 1. Motion limited exam. No acute thoracic finding. 2. Left upper lobe pulmonary nodule, poorly evaluated due to motion artifact. Follow-up CT chest in 3 months is recommended to evaluate for stability/resolution. 3. Emphysema. CT abdomen/pelvis: No acute abdominopelvic finding. Reading Location: [facility] Renal Ultrasound 03/13/25 18:27 IMPRESSION: NORMAL RENAL ULTRASOUND. Reading Location: [facility] Physical Exam Const alert and no apparent distress Constitutional Narrative: rigors. HEENT head/scalp atraumatic and moist oral mucous membranes Resp normal respiratory effort, no retractions, no use of accessory muscles and clear to auscultation bilaterally Cardio regular rate, regular rhythm, S1 normal heart sound and S2 normal heart sound GI normal to inspection, nondistended, normoactive bowel sounds, soft to palpation, non-tender and non-distended Extremity normal to inspection and full ROM Assessment & Plan Assessment/Plan (1) Generalized weakness: PLAN: Noted atrophy on CT. No acute CVA noted. I feel that this is progressive, possibly exacerbated by dehydration. PT OT eval and treat CM to assist w disposition Pt with active rigors, will check COVID/influenza/RSV and viral panel. (2) Abnormal urinalysis: PLAN: Rather banal appearing UA. Only 5-10 WBCs On CTX. If Cx negative, would dc abx (3) Elevated troponin: PLAN: Mild elevation. I suspect skewed due to DREW/CKD no additional work up (4) Elevated creatine kinase: PLAN: Mild elevation. I suspect skewed due to DREW/CKD no additional work up. (5) DREW (acute kidney injury): PLAN: v CKD. Unknown baseline creatinine. Received IVF. Monitor PLAN: Plan VTE prophylaxis: SQ heparin. Charges/Coding Visit Charges Inpatient E&M: 83596 Subs Hosp L2
[2025-03-14] MEDS: Clopidogrel Bisulfate 75 MG Tablet PO (09:41)
[2025-03-14] MEDS: Ensure Plus High Protein 120 ML LIQUID PO ×2 (09:41→11:14)
[2025-03-14] MEDS: Ceftriaxone 1 GM/50 ML BAG IV (09:42)
[2025-03-14] MEDS: FLUoxetine 10 MG Capsule PO (11:14)
[2025-03-14] MEDS: Atorvastatin Calcium 40 MG Tablet PO (21:05)
[2025-03-14] MEDS: hydrALAZINE 20 MG/ML Vial 10 MG IV (21:05)
[2025-03-14] MEDS: Pramipexole Di-HCl 0.125 MG Tablet PO (21:05)
[2025-03-14] MEDS: 0.9% Saline Lock 10 ML Syringe IV (21:06)
[2025-03-15 02:50] VITALS: BP 145/70; PULSE 59; RESP 16; TEMP 36.6; O2SAT 99
[2025-03-15] MEDS: Acetaminophen 500 MG Tablet 1000 MG PO (05:49)
[2025-03-15] MEDS: Heparin Injection (Vial) 5,000 UNIT/ML VIAL 5000 UNIT SC (05:49)
[2025-03-15 06:00] VITALS: BMI 23.1
[2025-03-15 07:00] VITALS: PULSE 44
[2025-03-15 07:38] LABS: Basophil# 0.06 X10^3/uL; Basophil% 1.3 % (0-1); Eosinophil# 0.04 X10^3/uL; Eosinophils% 0.9 % (0-5); Hematocrit 35.5 % (40-54); Hemoglobin 11.9 g/dL (13.0-16.5); Lymphocyte % 24.1 % (19-41); Mean Corp Hgb Conc 33.5 g/dL (32-36); Mean Corpuscular Hgb 31.6 pg (27.0-32.0); Mean Corpuscular Volume 94.2 fL (80-94); Mean Platelet Vol. 11.9 fl (6.2-12.0); Monocyte# 0.39 X10^3/uL; Monocyte% 8.6 % (0-10); NRBC Flagged by Analyzer 0 % (0-5); Neutrophil # 2.96 X10^3/uL (2.7-7.7); Neutrophil % 64.9 % (47-70); Platelet Count 136 K/mm3 (150-450); RBC Distribution Width CV 13.8 % (11.6-14.6); RBC Distribution Width SD 47.3 fl (35.1-43.9); Red Blood Count 3.77 M/mm3 (4.6-6.2); White Blood Count 4.6 K/mm3 (4.4-11.0)
[2025-03-15 08:00] VITALS: BP 138/63; PULSE 48; RESP 18; TEMP 36.8; O2SAT 100
[2025-03-15 08:14] LABS: Anion Gap 12 (5-15); BUN 45 mg/dL (4-19); BUN/Creat Ratio 21.8 RATIO (10-20); Calcium,Total 8.9 mg/dL (7.6-11.0); Carbon Dioxide 21.4 mmol/L (21.0-32.0); Chloride 107 mmol/L (98-108); Creatinine, Serum 2.05 mg/dL (0.70-1.20); EST Glomerular Filtration Rate 33 (>60); Estimated Creatinine Clearance 31.13 ml/min (50-250); Glucose 69 mg/dL (70-99); Potassium 4.5 mmol/L (3.3-5.1); Sodium Level 141 mmol/L (133-145)
[2025-03-15] MEDS: Clopidogrel Bisulfate 75 MG Tablet PO (09:34)
[2025-03-15] MEDS: Ceftriaxone 1 GM/50 ML BAG IV (09:34)
[2025-03-15] MEDS: 0.9% Saline Lock 10 ML Syringe IV (09:35)
[2025-03-15] MEDS: FLUoxetine 10 MG Capsule PO (09:35)
[2025-03-15 10:13] VITALS: O2SAT 97
[2025-03-15 11:00] VITALS: PULSE 44
--- NOTE | 2025-03-15 11:51 | CASEMGMT ---
RN HUGH Assessment Face to Face with patient for initial transition planning/care coordination assessment. SCOOBY REESE introduced self and role at [facility], pt voices understanding. Pt is A&Ox4 and is resting comfortably in bed and is calm. Care providers, pharmacy, and demographics verified. Admitting dx: Falls LACE Strata: 1 PCP: Nikhil Spear Specialists: Leyda (Cardio - [facility]), Dr. Worthington (Neuro - [facility]) [facility] Prescription Benefit: Yes LNOK: Nuzhat (Daughter), Fermin (Son) Living Arrangements: Pt lives alone in a mobile home with 3 steps to enter with handrails ADLs/IADLs: Pt is indep. Pt was able to ambulate 200 ft with PT with a 6-Click score of 20. No additional therapy recommended, see eval. Transportation: Self, family. Denies concerns DME: Denies all DME uses or needs. Pt was given medical alert system resource by the ED SW. Pt reports that he is unsure if he still has the resources so this RN CM provided the pt with further medical alert system information due to the fall and living alone. HHC/SNF: Denies Pt?s goal: Home Plan: Home, anticipate no additional needs. Pt reports that he is ready for DC and that he feels safe returning home alone today. Pt states that his son lives close if he were to need anything. Pt denies the need for HH or OP Tx. Pt denies further questions or concerns. Report given to [employer] CM. Garfield Cervantes RN, CM
--- NOTE | 2025-03-15 11:57 | PCM.DC.SUM ---
Providers Date of Admission: 03/13/25 Primary Care Physician: Dr. Nikhil Spear MD Reason For Visit: FALLS Diagnosis Discharge Diagnosis (1) Generalized weakness: Status: Acute Code(s): R53.1 - Weakness Plan: Patient presented with weakness. Patient was having nausea vomiting and diarrhea prior to arrival. Utilize here he still having some rigors but overall improving. Patient is feeling much better at this time. Patient worked with therapy and did well. No additional therapies patient will go home. (2) Abnormal urinalysis: Status: Acute Code(s): R82.90 - Unspecified abnormal findings in urine Plan: Urine culture negative. I do not feel the patient has a urinary tract infection we will discontinue antibiotics. (3) Elevated troponin: Status: Acute Code(s): R79.89 - Other specified abnormal findings of blood chemistry Plan: Mild elevation. I suspect skewed due to DREW/CKD no additional work up (4) Elevated creatine kinase: Status: Acute Code(s): R74.8 - Abnormal levels of other serum enzymes Plan: Mild elevation. I suspect skewed due to DREW/CKD no additional work up. (5) DREW (acute kidney injury): Status: Acute Code(s): N17.9 - Acute kidney failure, unspecified Plan: Acute on chronic kidney disease. Creatinine has improved with IV fluids. Patient was likely dehydrated due to his gastroenteritis of unknown etiology. Patient is going to be following up with casino floor person in the near future which has already been established. Plan VTE prophylaxis: SQ heparin. Medications at Discharge Home Medications atorvastatin 40 mg tablet (Lipitor) 40 mg PO DAILY Cholesterol medication 03/13/25 clopidogrel 75 mg tablet 75 mg PO DAILY Blood thinner 03/13/25 fluoxetine 10 mg capsule 10 mg PO DAILY Antidepressant 03/13/25 lisinopril 20 mg tablet 20 mg PO DAILY Hypertension 03/13/25 ropinirole 0.25 mg tablet 0.25 mg PO QHS Tremors 03/13/25 Hospital Course Operations None Procedures None Summary of Care Provided Minutes Spent on Discharge: 32 Hospital Course: Patient presents with nausea vomiting and diarrhea. Was just very weak and had DREW. Patient received IV fluids and I had an infectious workup that was negative. Suspect patient may have had some viral gastroenteritis given his symptoms but that has since resolved. His kidney function is improved but still elevated. We have no baseline labs here but his initial creatinine was 3.98 is down to 2.05. Patient has a known history of chronic kidney disease and is to see a casino floor person in the future which had been previously established. Patient feels great work with therapy had no needs and patient be going home. Physical Exam Const alert and no apparent distress HEENT normocephalic and head/scalp atraumatic Resp normal respiratory effort, no retractions, no use of accessory muscles and clear to auscultation bilaterally Cardio regular rate, regular rhythm, S1 normal heart sound and S2 normal heart sound GI normal to inspection, nondistended, normoactive bowel sounds, soft to palpation, non-tender and non-distended Weight / BMI Weight Weight: 71.1 kg Body Mass Index (BMI) 23.1 ABG / Lab / Microbiology Data 03/15/25 06:26 03/15/25 06:26 Laboratory: Laboratory Results - last 24 hr 03/15/25 06:26: WBC 4.6, RBC 3.77 L, Hgb 11.9 L, Hct 35.5 L, MCV 94.2 H, MCH 31.6, MCHC 33.5, RDW Std Deviation 47.3 H, RDW Coeff of Cheryl 13.8, Plt Count 136 L, MPV 11.9, Immature Gran % (Auto) 0.200, Neut % (Auto) 64.9, Lymph % (Auto) 24.1, [place] % (Auto) 8.6, Eos % (Auto) 0.9, Baso % (Auto) 1.3 H, Absolute Neuts (auto) 3.0, Absolute Lymphs (auto) 1.10, Nucleated RBC % 0, Sodium 141, Potassium 4.5, Chloride 107, Carbon Dioxide 21.4, Anion Gap 12, BUN 45 H, Creatinine 2.05 H, Estim Creat Clear Calc 31.13 L, Est GFR (MDRD) Non-Af 33 L, BUN/Creatinine Ratio 21.8 H, Glucose 69 L, Calcium 8.9 Microbiology: Microbiology 03/14/25 23:45 Stool Enteric Bacteriology - Final 03/14/25 23:45 Stool Clostridioides difficile (PCR) - Final 03/14/25 13:55 Mucosa - Nasopharyngeal Respiratory Panel (PCR) - Final 03/14/25 13:50 Mucosa - Nasopharyngeal SARS-CoV-2, Influenza & RSV (PCR) - Final D/C Instructions Discharge Diet: No restrictions DC O2, CPAP, BIPAP Needs Home O2 Discharge instructions: No Meaningful Use Info Meaningful Use Meaningful Use Diagnoses (Choose all that apply): None applicable Ischemic Stroke Statin Dosing Therapy Reference: STATIN DOSE THERAPY REFERENCE: * Patients > 75 years receive moderate or high dose statin therapy. * Patients 75 years or YOUNGER should receive HIGH intensity statin dose unless contraindicated. You will be required to document reason for non-treatment if statin daily dose does not meet guidelines. HIGH DOSE STATIN THERAPY DAILY Atorvastatin > than or = to 40 mg Rosuvastatin > than or = to 20 mg Amlodipine + Atorvastatin > than or = to 2.5/40 mg Ezetimibe + Simvastatin 10/80 mg Simvastatin 80mg Discharge Plan Admission Admit Date/Time: 03/13/25 18:20 Primary Reason for Your Visit: Acute kidney injury Attending Provider: Tawanda Martin Primary Care Provider: Nikhil Spear Consulting Providers: Kayli Marino Instructions Additional Instructions / Restrictions: You had acute kidney injury due to dehydration from your nausea, vomiting and diarrhea. That improved with IV fluids and currently her creatinine is down to 2.05. Your family informed me that you are to see a casino floor person (kidney doctor) please keep that appointment just to keep close tabs on your kidney function. Discharge Orders/Prescriptions Prescriptions: Continued clopidogrel 75 mg tablet 75 mg PO DAILY ropinirole 0.25 mg tablet 0.25 mg PO QHS fluoxetine 10 mg capsule 10 mg PO DAILY atorvastatin [Lipitor] 40 mg tablet 40 mg PO DAILY lisinopril 20 mg tablet 20 mg PO DAILY Discontinued chlorthalidone 25 mg tablet 25 mg PO DAILY Referrals / Follow Up: Nikhil Spear MD [Primary Care Provider] - Within 2 Weeks Disposition Disposition (needs filled in before D/C Order can be placed): Home, Self Care Charges/Coding Visit Charges Inpatient E&M: 35935 Disch Hosp >30min
[2025-03-15 13:00] VITALS: BP 155/60; PULSE 68; RESP 18; O2SAT 99
== END 2025-03-15 13:19 | disposition home or self-care (01) | DRG 948 ==
LOC: ED 18:21 → PCU 18:28
PROVIDERS: Admitting Provider Internal Medicine; Emergency Provider Emergency Medicine; Referring Provider Emergency Medicine
DX: R53.1 Weakness (principal); E87.20 Acidosis, unspecified; E87.4 Mixed disorder of acid-base balance; N17.9 Acute kidney failure, unspecified; E87.3 Alkalosis; Z66 Do not resuscitate; J43.9 Emphysema, unspecified; G25.81 Restless legs syndrome; I12.9 Hypertensive chronic kidney disease with stage 1 through stage 4 chronic kidney disease, or unspecified chronic kidney disease; F32.A Depression, unspecified; R00.1 Bradycardia, unspecified; N18.2 Chronic kidney disease, stage 2 (mild); I25.10 Atherosclerotic heart disease of native coronary artery without angina pectoris; F17.210 Nicotine dependence, cigarettes, uncomplicated; E78.2 Mixed hyperlipidemia; R19.7 Diarrhea, unspecified; R11.11 Vomiting without nausea; R91.1 Solitary pulmonary nodule; R41.89 Other symptoms and signs involving cognitive functions and awareness; R79.89 Other specified abnormal findings of blood chemistry; Z86.74 Personal history of sudden cardiac arrest; R82.90 Unspecified abnormal findings in urine; R74.8 Abnormal levels of other serum enzymes
CPT/HCPCS: 36415; 36600; 70450; 71260; 72125; 74177; 76770; 80048; 80053; 80076; 80307; 81001; 82306; 82550; 82570; 82607; 82803; 83735; 83880; 84100; 84300; 84439; 84443; 84481; 84484; 84540; 85025; 85610; 85730; 87086; 87493; 87506; 87631; 87633; 93005; 93306; 94668; 97161; 97165; 99285; Q9967; A4216